=== PATIENT | male | born 1960 | race Caucasian/White ===

== ENCOUNTER 2021-10-01 15:41 | Emergency (ER) | payer OTHER, SELFPAY ==
[2021-10-01] VITALS (42 sets, daily range): BP systolic 120–205; BP diastolic 73–118; PULSE 71–85; RESP 13–26; TEMP 27.7–36.8; O2SAT 93–100
--- NOTE | ~2021-10-01 | XR_ITS ---
EXAM: XR shoulder LT min 2V DATE: 10/01/2021 17:19 HISTORY: ASSESSMENT OF MANIPULATION . COMPARISON: Same date at 3:47 PM. FINDINGS: The humeral head remains anteriorly dislocated relative to the glenoid. No interval fractu re. IMPRESSION: Persistent anterior left shoulder dislocation. Reviewed, dictated and finalized at location K.
--- NOTE | ~2021-10-01 | XR_ITS ---
EXAM: XR shoulder LT min 2V DATE: 10/01/2021 15:51 HISTORY: PAIN, HX OF DISLOCATIONS,FELT POP TODAY,CANT MOVE SHOULDER . COMPARISON: None available. FINDINGS: Normal mineralization. No fracture. Anterior dislocation of the left humeral head. No lyti c or blastic lesion. Severe AC joint hypertrophy. No erosion or periosteal change. Soft tissues withi n normal limits. IMPRESSION: Anterior left shoulder dislocation. Reviewed, dictated and finalized at location K.
--- NOTE | ~2021-10-01 | XR_ITS ---
EXAM: XR shoulder LT min 2V DATE: 10/01/2021 18:19 HISTORY: post reduction . COMPARISON: Same date, 5:12 PM. FINDINGS: The glenohumeral joint is now aligned. Flattening of the posterior lateral aspect of the f emoral head. Subtle ossific density along the inferior glenoid rim. IMPRESSION: Successful interval left shoulder reduction. Hill-Sachs and osseous Bankart lesions. Reviewed, dictated and finalized at location K.
--- NOTE | 2021-10-01 16:33 | ED.UPPEXIN ---
HPI - Extremity Injury (Upper) General Chief Complaint: Extremity Injury, Upper Stated Complaint: ? L SHOULDER DISLOCATION Time Seen by Provider: 10/01/21 16:33 History of Present Illness HPI narrative: Patient is a 61-year-old male presenting to the emergency department for evaluation of recurrent left shoulder dislocation. Patient states that he dislocated his shoulder this afternoon when reaching forward to grab something that had fallen out of his car. Patient reports acute pain although rates it as mild in nature. No radiation of pain to the elbow or wrist. No head trauma or loss of consciousness or fall to the ground. Patient states that he recently dislocated his shoulder 4 weeks ago after falling on a left outstretched arm and was seen at [facility]. Patient states it took greater than 90 minutes to have his shoulder relocated in the ER. Patient is left-hand dominant. He denies left upper extremity weakness or numbness. He does report aggravation of pain with movement. Pt states pt has a history of alcohol abuse, and she thinks that he fell yesterday injuring it and it has likely been dislocated since yesterday. Related Data Allergies Allergy/AdvReac Type Severity Reaction Status Date / Time No Known Allergies Allergy Unverified 05/06/14 11:00 Review of Systems Review of Systems: CONSTITUTIONAL: Denies fever, chills, or sweats. EYES: Denies visual changes, redness, or discharge. ENT: Denies rhinorrhea, congestion, sore throat, or otalgia. CARDIOVASCULAR: Denies chest pain, palpitations, or edema. RESPIRATORY: Denies cough or dyspnea. GASTROINTESTINAL: Denies abdominal pain, nausea, vomiting, or diarrhea. GENITOURINARY: Denies dysuria or hematuria. SKIN: Denies rash or itching. MUSCULOSKELETAL: Denies back pain, reports left shoulder pain NEUROLOGIC: Denies headache, numbness, or weakness. Exam Narrative: GENERAL: Awake, alert, conversant HEAD: Normocephalic, atraumatic. EYES: PERRLA and EOMI. ENT: Nares clear, no rhinorrhea or epistaxis. Mucous membranes moist. NECK: Supple. CHEST: No respiratory distress, breathing even and non labored HEART: Regular rate, sinus rhythm ABDOMEN:Non distended, non tender EXTREMITIES: Squaring off of the shoulder in the left upper extremity. Intact sensation overlying the deltoid. Patient cannot complete internal rotation of the left upper extremity. Radial pulse 2+. Intact sensation median, ulnar, radial nerve distribution. No deformity at the elbow or wrist. SKIN: Warm, dry, no rash. NEURO:No focal deficits. Alert and oriented x3 Course Vital Signs Vital signs: Vital Signs Pulse Rate 84 10/01/21 15:58 Respiratory Rate 20 10/01/21 15:58 Pulse Oximetry 98 10/01/21 15:58 Temperature 36.8 C 10/01/21 19:24 Pulse Rate 80 10/01/21 19:15 Respiratory Rate 14 10/01/21 19:15 Blood Pressure 152/91 H 10/01/21 19:16 Pulse Oximetry 100 10/01/21 19:02 Oxygen Delivery Room Air 10/01/21 19:02 Oxygen Flow Rate 2 10/01/21 18:12 Procedures Orthopedic Joint Reduction Joint #1: Orthopedic Joint Reduction Date: 10/01/21 Orthopedic Joint Reduction Time: 17:57 Time Out Performed: Yes Side: left Joint Reduction Location: shoulder Analgesia: hematoma block Pre-Procedure Neuro Vascular Exam: normal Local Anesthesia: lidocaine 1% and with epi Amount of anesthesic used (mL): 10 Shoulder Technique Used (if applicable): traction/counter-traction Technique used: traction/counter-traction and direct manipulation Post-reduction neuro exam: intact Post-reduction vascular: intact Post Reduction X-Ray Obtained: Yes Post Reduction X-Ray Results: not reduced Splint Applied: No Patient Tolerated Procedure: no complications Joint #2: Orthopedic Joint Reduction Date: 10/01/21 Orthopedic Joint Reduction Time: 18:00 Time Out Pe
[2021-10-01] MEDS: fentaNYL CITRATE INJ (*CRX) 100 MCG/2 ML VIAL 50 MCG IV PUSH ×2 (16:52→17:00)
[2021-10-01] MEDS: LIDO 1%/EPINEPHRINE 1:100,000 20 ML VIAL 10 ML INFILTRATE (16:52)
[2021-10-01] MEDS: ONDANSETRON INJ 4 MG/2 ML VIAL IV PUSH (16:52)
--- NOTE | 2021-10-01 17:05 | PC.NURSE ---
ERP AT BEDSIDE TO REDUCE SHOULDER, MEDS GIVEN
--- NOTE | 2021-10-01 17:21 | ECG_ITS ---
Rate 77 TX 161 QRSd 89 QT 386 QTc 437 --[place]-- P 33 QRS 36 T 22 SINUS RHYTHM NO PREVIOUS ECG AVAILABLE FOR COMPARISON Electronically Signed On 10-02-2021 22:09:04 CDT by Kaley DRAPER
[2021-10-01] MEDS: SODIUM CHLORIDE 0.9% IV 1,000 ML 999 ML IV CONT (17:50)
--- NOTE | 2021-10-01 18:01 | PC.NURSE ---
Addendum entered by Suzette Plaza RN 10/01/21 18:35: ERP gave total of 200mg of proprofol. another 200mg of proprofol wasted with Rajiv and documented in pyxis Original Note: 1757 proprofol 40mg 1801 proprofol 20mg more 1801 proprofol 30mg more 1802 proprofol 10mg more 1803left shoulder reduced p-90 SPO2-93 BP-173/110 PCO2 42, pt asleep, sling applied 1805 pt talking but drowsy 1808 awake A/O x3, at bedside p-78 BP-124/82 SPO2-97%, RR-20, PCO2-35 1814 awake A/Ox3, p-80, spo2 97 BP-120/77
[2021-10-01 18:03] LABS: Basophils Absolute Auto 0.1 K/mm3 (0.0-0.1); Basophils Percent Auto 0.5 % (0.2-1.2); Eosinophils Absolute Auto 0.1 K/mm3 (0-0.3); Eosinophils Percent Auto 0.5 % (0-4.4); Hematocrit 48.8 % (42.0-52.0); Hemoglobin 16.5 g/dL (14.0-18.0); Immature Granulocyte Absolute 0.29 K/mm3 (0.00-0.031); Immature Granulocyte Percent A 2.8 % (0-0.5); Lymphocytes Absolute Auto 2.01 K/mm3 (0.9-3.2); Lymphocytes Percent Auto 19.1 % (18.3-44.2); Mean Corpuscular HGB Conc 33.8 g/dl (32-36); Mean Corpuscular Hemoglobin 32.5 pg (26-34); Mean Corpuscular Volume 96.3 fl (80-100); Mean Platelet Volume 10.2 fl (7.4-10.4); Monocytes Absolute Auto 0.8 K/mm3 (0.1-0.6); Neutrophils Absolute Auto 7.3 K/mm3 (1.3-6.7); Neutrophils Percent Auto 69.1 % (45.5-73.1); Platelet Count Result 206 k/mm3 (150-375); Red Blood Count 5.07 M/mm3 (4.6-6.20); Red Cell Distribution Width 12.5 % (11.5-14.5); White Blood Count 10.5 K/mm3 (4.5-10.0)
[2021-10-01 18:15] LABS: Ethanol < 10 mg/dL (<10)
[2021-10-01 18:16] LABS: Anion Gap 5 mmol/L (8-16); Blood Urea Nitrogen 19 mg/dL (9-20); Calcium 8.8 mg/dL (8.4-10.2); Carbon Dioxide 26 mmol/L (22-30); Chloride 104 mmol/L (98-107); Estimated Glomerular Filt Rate > 60; Glucose 105 mg/dL (65-110); Potassium 3.2 mmol/L (3.4-5.0); Sodium 135 mmol/L (137-145)
[2021-10-01] MEDS: PROPOFOL IV EMULSION 200 MG/20 ML VIAL 100 MG IV PUSH (18:41)
[2021-10-01] MEDS: POTASSIUM CHLORIDE 20 MEQ PACKET (FOR LIQUID) 40 MEQ PO (18:45)
== END 2021-10-01 19:28 | disposition home or self-care (01) ==
PROVIDERS: Emergency Provider Emergency Medicine; PCP Chiropractor
DX: M24.412 Recurrent dislocation, left shoulder (principal)
CPT/HCPCS: 23650; 36415; 73030; 80048; 80307; 85025; 93005; 96374; 96375; 99285; A9270; J2405; J2704; J3010; J7030

== ENCOUNTER → 2021-10-12 09:57 | Outpatient (CLI) | payer OTHER, SELFPAY ==
--- NOTE | ~2021-10-12 | MR_ITS ---
EXAMINATION: MR shoulder LT wo con DATE: 10/12/2021 11:00 INDICATION: Limited range of motion post fall with anterior left shoulder dislocation 2 weeks prior TECHNIQUE: Magnetic resonance imaging (MRI) of the left shoulder was performed without intravenous co ntrast. Sequences included axial PD-weighted FS FSE, coronal oblique PD-weighted FS FSE, coronal obli que T2-weighted FS FSE, sagittal PD-weighted FS FSE, and sagittal T1-weighted SE. COMPARISON: Radiographs dated 10/11/2021 FINDINGS: Bones: There is mild posterior superior subluxation of the humeral head with respect to the glenoid with wid ening of the anteroinferior aspect of the joint space. Large Hill-Sachs fracture trough involving a s mall portion of the articular surface at the posterior superior lateral aspect of the humeral head. T here is surrounding marrow edema although this appears less severe than would be expected for an inju ry occurring 11 days prior and suggests this could represent a recurrent anterior dislocation injury. Correlate with clinical history. No corresponding osseous Bankart fracture although there is a small amount of marrow edema along the anterior neck of the glenoid which could be related to reactive randy ma related to injury of the osseous capsular attachment. No pathologic marrow replacing process. Cyst ic change along the greater tuberosity which could be related to chronic rotator cuff disease. Coracoacromial arch: The acromion undersurface is curved in morphology (type II). There is thickening of the coracoacromia l ligament. Severe acromioclavicular osteoarthritis. Rotator cuff: Moderate rotator cuff tendinopathy with sparing the normal teres minor tendon. Full-thickness rotator cuff tear along the superior and middle facet footplates of the greater tuberosity involving all but a small portion of the anteriormost supraspinatus tendon as well as the anterior 1/2 to 2/3 of the i nfraspinatus tendon. The tear defect measures approximately 5 cm AP at the level of the apex of the h umeral head and 4 cm medial collateral with the frayed tear margin retracted slightly medial to the l ateral margin of the acromion. No subscapularis tendon tear. Moderate fatty atrophy of the supraspina tus and infraspinatus muscle bellies and mild fatty atrophy of the subscapularis muscle belly. Biceps tendon, glenoid labrum and glenohumeral cartilage: Mild tendinopathy without discrete tear of the intra-articular long head biceps tendon. There is a sm all tear along the base of the anterosuperior glenoid labrum. Less well-defined mild degeneration lake ng the periphery of the posterior superior glenoid labrum. There is a tear of the anterior to anteroi nferior glenoid labrum which is secured off from the rim of the glenoid with displaced and frayed rachel earing meniscal tissue extending posteriorly across the junction of the mid to inferior thirds of the glenohumeral joint space. Prominent thickening and mild increased signal consistent with partial tea r of the anteroinferior band of the glenohumeral ligament. Fluid: Small glenohumeral joint effusion which extends through the full-thickness rotator cuff tear to commu nicate with a small amount of fluid in the subacromial/subdeltoid bursa. No loose osteochondral sonia s. IMPRESSION: 1. Findings consistent with known history of anterior humeral dislocation including a large Hill-Sach s fracture trough at the posterior superolateral aspect of the humeral head which could be either acu te or acute on chronic as well as a soft tissue Bankart injury with displaced tear of the anterior to anteroinferior glenoid labrum and partial tear of the anteroinferior glenohumeral ligament. 2. Large full-thickness rotator cuff tear involving the majority of the supraspinatus and anterior byrd lf to two thirds of the infraspinatus tendon. 3. Moderate subscapularis tendinopathy without discrete tear.
== END ==
DX: S43.012D Anterior subluxation of left humerus, subsequent encounter (principal); X58.XXXD Exposure to other specified factors, subsequent encounter; M19.012 Primary osteoarthritis, left shoulder
CPT/HCPCS: 73221

== ENCOUNTER 2022-08-28 11:15 | Emergency (ER) | payer OTHER, SELFPAY ==
--- NOTE | ~2022-08-28 | XR_ITS ---
EXAMINATION: XR shoulder LT min 2V DATE: 08/28/2022 12:32 INDICATION: Left shoulder pain. TECHNIQUE: 4 views of left shoulder were obtained. COMPARISON: Left shoulder radiographs 10/01/21 FINDINGS: There is anterior dislocation of humeral head with respect to glenoid. There is an impactio n fracture deformity of posterolateral humeral head. There is severe osteoarthritis of the acromiocla vicular joint. IMPRESSION: 1. Anterior left shoulder dislocation. 2. Hill-Sachs fracture deformity, which may be chronic or acute on chronic. 3. Severe left acromioclavicular joint osteoarthritis. Reviewed, dictated and finalized at location A.
--- NOTE | ~2022-08-28 | XR_ITS ---
EXAMINATION: XR shoulder LT min 2V DATE: 08/28/2022 13:39 INDICATION: Left shoulder dislocation status post reduction. TECHNIQUE: 3 views of left shoulder were obtained. COMPARISON: Left shoulder radiographs at 12:27 PM FINDINGS: Bone alignment is normal. There is an impaction fracture deformity of posterolateral von l head. There is mild osteoarthritis of glenohumeral joint and severe osteoarthritis of the acromiocl avicular joint. There is a 5 mm loose body in glenohumeral joint. IMPRESSION: 1. Normal alignment at glenohumeral joint. 2. Hill-Sachs fracture deformity of humeral head, which may be chronic or acute on chronic. 3. Polyarticular osteoarthritis. Reviewed, dictated and finalized at location A.
[2022-08-28 11:17] VITALS: BP 178/126; PULSE 90; RESP 18; TEMP 36.1; O2SAT 99
--- NOTE | 2022-08-28 12:58 | ED.GENADULT ---
HPI - General Adult General Chief complaint: Extremity Injury, Upper Stated complaint: L SHOULDER INJURY Time Seen by Provider: 08/28/22 11:57 History of Present Illness HPI narrative: 62-year-old male present emergency department for evaluation of left shoulder injury. Patient states he has had previous shoulder dislocations and does have a rotator cuff injury. Patient has also had previous follow-up for this and states he does not want to have shoulder surgery. Patient reports today he was putting on a shirt and felt his shoulder dislocate. Imaging upon arrival to the ED does confirm an anterior shoulder dislocation. Patient denies any other pain or injury. Related Data Allergies Allergy/AdvReac Type Severity Reaction Status Date / Time No Known Allergies Allergy Unverified 05/06/14 11:00 Review of Systems Review of Systems: All systems reviewed & are unremarkable except as noted in HPI and below Exam Narrative: APPEARANCE: Well appearing, no pain, no distress, well-nourished. HEAD: normocephalic, atraumatic. EYES: PERRLA/EOMI, conjunctivae clear. NECK: Supple. No adenopathy, no masses. RESPIRATORY: Airway patent, respirations nonlabored. Clear to auscultation bilaterally, no rales, rhonchi, wheezing. CARDIOVASCULAR: Regular rate and rhythm without murmurs rubs or gallops. ABDOMINAL: Soft, nontender, nondistended, normal bowel sounds MUSCULOSKELETAL: Left shoulder deformity with an anterior dislocation. Neurovascular intact NEURO: Alert. Cranial nerves II through XII intact. Grossly intact SKIN: Warm, dry. Normal Color Course Course Emergency Course: 62 old male with a left shoulder dislocation. Shoulder was able to be reduced with out pain medications. Patient does feel improved after reduction. Patient was placed in a left shoulder immobilizer. Postreduction films were ordered. Patient states he prefers not to have follow-up with orthopedics. Patient was warned that the shoulder may continue to dislocate. Vital Signs Vital signs: Vital Signs Temperature 96.9 F L 08/28/22 11:17 Pulse Rate 90 08/28/22 11:17 Respiratory Rate 18 08/28/22 11:17 Blood Pressure 178/126 H 08/28/22 11:17 Pulse Oximetry 99 08/28/22 11:17 Oxygen Delivery Room Air 08/28/22 11:17 Temperature 96.9 F L 08/28/22 11:17 Pulse Rate 90 05/04/23 11:17 Respiratory Rate 18 08/28/22 11:17 Blood Pressure 178/126 H 08/28/22 11:17 Pulse Oximetry 99 08/28/22 11:17 Oxygen Delivery Room Air 08/28/22 11:17 Procedures Orthopedic Joint Reduction Joint #1: Time Out Performed: Yes Side: left Joint Reduction Location: shoulder Analgesia: none Pre-Procedure Neuro Vascular Exam: normal Shoulder Technique Used (if applicable): traction/counter-traction and scapula manipulation Technique used: traction/counter-traction and direct manipulation Post-reduction neuro exam: intact Post-reduction vascular: intact Post Reduction X-Ray Obtained: Yes Post Reduction X-Ray Results: reduced Splint Applied: Yes Patient Tolerated Procedure: well Medical Decision Making Vital Signs Vital Signs: Vital Signs Temperature 96.9 F L 08/28/22 11:17 Pulse Rate 90 08/28/22 11:17 Respiratory Rate 18 08/28/22 11:17 Blood Pressure 178/126 H 08/28/22 11:17 Pulse Oximetry 99 08/28/22 11:17 Oxygen Delivery Room Air 08/28/22 11:17 Temperature 96.9 F L 08/28/22 11:17 Pulse Rate 90 08/28/22 11:17 Respiratory Rate 18 08/28/22 11:17 Blood Pressure 178/126 H 08/28/22 11:17 Pulse Oximetry 99 08/28/22 11:17 Oxygen Delivery Room Air 08/28/22 11:17 Imaging Data Radiologist's impression: Impressions Shoulder X-Ray 08/28/22 12:34 IMPRESSION: 1. Anterior left shoulder dislocation. 2. Hill-Sachs fracture deformity, which may be chronic or acute on chronic. 3. Severe left acromioclavicular joint osteoarthritis.
== END 2022-08-28 14:15 | disposition home or self-care (01) ==
PROVIDERS: Emergency Provider Emergency Medicine
DX: S43.015A Anterior dislocation of left humerus, initial encounter (principal); M19.012 Primary osteoarthritis, left shoulder; X50.9XXA Other and unspecified overexertion or strenuous movements or postures, initial encounter
CPT/HCPCS: 23650; 73030; 99285; A4565

== ENCOUNTER 2022-10-19 07:31 | Emergency (ER) | payer OTHER, SELFPAY ==
--- NOTE | ~2022-10-19 | XR_ITS ---
XR shoulder LT min 2V DATE: 10/19/2022 09:29 INDICATION: Left shoulder anterior glenohumeral dislocation; post reduction examination TECHNIQUE: 4 views COMPARISON: None FINDINGS: There is reduction of anterior dislocation of the left glenohumeral joint noted earlier tocarmela lamar. No recent fracture is evident. IMPRESSION: Reduction of anterior glenohumeral dislocation Reviewed, dictated and finalized at location A.
--- NOTE | ~2022-10-19 | XR_ITS ---
XR shoulder LT min 2V DATE: 10/19/2022 07:46 INDICATION: Left shoulder dislocation TECHNIQUE: 3 views COMPARISON: 08/2022 left shoulder FINDINGS: There is anterior glenohumeral dislocation with humeral head in subcoracoid position. There is degenerative change but normal alignment at the acromioclavicular joint. No fracture is evident. Degenerative changes of the thoracic spine. IMPRESSION: Anterior glenohumeral dislocation Reviewed, dictated and finalized at location A.
[2022-10-19 07:36] VITALS: BP 131/89; PULSE 88; RESP 18; TEMP 36.2; O2SAT 99
[2022-10-19] MEDS: MIDAZOLAM HCL (*CRX) 2 MG/2 ML VIAL 4 MG IM (08:14)
--- NOTE | 2022-10-19 09:35 | ED.UPPEXIN ---
HPI - Extremity Injury (Upper) General Chief Complaint: Extremity Injury, Upper Stated Complaint: left shoulder dislocation Time Seen by Provider: 10/19/22 07:39 History of Present Illness HPI narrative: This is a 62-year-old male with past history of 4 previous left shoulder dislocations, who presents to the emergency department with the same today. He states he sat up out of bed, moved to the left arm the wrong direction and the shoulder dislocated. He denies significant pain, numbness, weakness or other injury. Related Data Allergies Allergy/AdvReac Type Severity Reaction Status Date / Time No Known Allergies Allergy Verified 10/19/22 07:38 Review of Systems Review of Systems: CONSTITUTIONAL: Denies fever, chills, or sweats. CARDIOVASCULAR: Denies chest pain, palpitations, or edema. RESPIRATORY: Denies cough or dyspnea. GASTROINTESTINAL: Denies abdominal pain, nausea, vomiting, or diarrhea. GENITOURINARY: Denies dysuria or hematuria. SKIN: Denies rash or itching. MUSCULOSKELETAL: Left shoulder pain and dislocation denies back pain, or myalgia. NEUROLOGIC: Denies headache, numbness, dizziness, or weakness. PSYCHIATRIC: Denies anxiety or depression. PMFSH Past Medical History Medical History (Updated 10/19/22 @ 09:41 by Jordan Rico MD) Recurrent dislocation, left shoulder Surgical History Surgical History (Updated 10/19/22 @ 09:36 by Jordan Rico MD) No significant past surgical history Social History Social History (Updated 10/19/22 @ 09:36 by Jordan Rico MD) Smoking status: Never smoker Alcohol intake: current Substance use: never Exam Narrative: GENERAL: Well-developed, well-nourished, and in no acute distress. HEAD: Normocephalic, atraumatic. EYES: PERRLA and EOMI. CHEST: Clear to auscultation. No respiratory distress. No wheezes rales or rhonchi HEART: Regular rate and rhythm. No murmur heard. Normal peripheral pulses. ABDOMEN: Soft, nontender, nondistended, normal active bowel sounds. EXTREMITIES: Deformity of the left shoulder consistent with anterior shoulder dislocation. Range of motion of the elbow and wrist is intact. Sensation intact in all fingers. Strength on flexion and extension at the elbow, wrist and hand is intact. Normal range of motion. No edema. SKIN: Warm, dry, no rash. NEURO: No focal deficits. Alert and oriented x3. PSYCH: Normal mood and affect. Course Course Emergency Course: 09:20 - Left shoulder was reduced with traction counter traction and inline weight. X-ray shows the shoulder is reduced without fracture. Neurovascular exam intact postreduction. Will discharge with orthopedic surgery follow-up; the patient was previously followed by orthopedic surgery at [facility] and prefers to continue care there. Discussed return and emergent precautions including signs/symptoms of neurovascular compromise and septic arthritis. The patient voiced understanding and is comfortable with the plan. All questions answered to his satisfaction. Vital Signs Vital signs: Vital Signs Temperature 97.1 F L 10/19/22 07:36 Pulse Rate 88 10/19/22 07:36 Respiratory Rate 18 10/19/22 07:36 Blood Pressure 131/89 10/19/22 07:36 Pulse Oximetry 99 10/19/22 07:36 Oxygen Delivery Room Air 10/19/22 07:36 Temperature 97.1 F L 10/19/22 07:36 Pulse Rate 90 10/19/22 10:00 Respiratory Rate 16 10/19/22 10:00 Blood Pressure 133/89 10/19/22 10:00 Pulse Oximetry 96 10/19/22 10:00 Oxygen Delivery Room Air 10/19/22 07:36 Procedures Orthopedic Joint Reduction Joint #1: Orthopedic Joint Reduction Date: 10/19/22 Orthopedic Joint Reduction Time: 09:20 Time Out Performed: Yes Side: left Joint Reduction Location: shoulder Analgesia: none (IM Versed) Pre-Procedure Neuro Vascular Exam: normal Shoulder Technique Used (if applicable): traction/counter-traction Technique used
[2022-10-19 10:00] VITALS: BP 133/89; PULSE 90; RESP 16; O2SAT 96
== END 2022-10-19 10:00 | disposition home or self-care (01) ==
PROVIDERS: Emergency Provider Preventive Medicine Aerospace Medicine
DX: S43.015A Anterior dislocation of left humerus, initial encounter (principal); M25.512 Pain in left shoulder; X50.0XXA Overexertion from strenuous movement or load, initial encounter
CPT/HCPCS: 23650; 73030; 96372; 99285; J2250